=== PATIENT | male | born 1950 | race African-American/Black ===

== ENCOUNTER 2018-01-31 05:45 | Inpatient (IN) | payer MEDICARE ==
[~2018-01-31] VITALS: Ht 175.3 cm; Wt 47.0 kg
--- NOTE | ~2018-01-31 | OP ---
PATIENT NAME: ROGE HDZ MEDICAL RECORD: [id number] :46 LOCATION:D.MS Car[facility]2231 ADMISSION DATE:01/31/18 SURGEON: PRIYANKA BRADSHAW MD DATE OF OPERATION: 02/03/2018 PREOPERATIVE DIAGNOSES: 1. Need for IV access. 2. End-stage renal disease. 3. Mental status changes. 4. Hypertension. 5. Anemia of chronic kidney disease. 6. Pneumonia. POSTOPERATIVE DIAGNOSES: 1. Need for IV access. 2. End-stage renal disease. 3. Mental status changes. 4. Hypertension. 5. Anemia of chronic kidney disease. 6. Pneumonia. PROCEDURE: Right IJ triple-lumen central venous line placement. SURGEON: Priyanka Bradshaw MD REPORT OF PROCEDURE: The patient's right neck was prepped and draped in sterile fashion. Using ultrasound guidance 5 cc of 1% lidocaine was infused into the surrounding tissues and a needle was used to cannulate the right internal jugular vein. A guidewire was advanced with ease. Over this wire, a dilator was placed followed by the triple lumen catheter. The catheter aspirated nonpulsatile dark blood and flushed easily in all 3 ports. This was sutured in place with 3-0 silk ties and dressed appropriately. COMPLICATIONS: None. CONDITION: Stable. ANESTHESIA: Local. BLOOD LOSS: Minimal. Procedure done at the bedside. TRANSINT:[id number] Voice Confirmation ID: [id number] DOCUMENT ID: [id number] PRIYANKA BRADSHAW MD at 0801 CC: [id number] DICTATION DATE: 02/03/181756 MEDICAL RECORD TECHNICIAN: 02/03/18 1846 ADM IN [place] [id number] [place] [address]
--- NOTE | ~2018-01-31 | MORECARE ---
CASE MANAGEMENT DISCHARGE SUMMARY PATIENT: ROGE HDZ UNIT: [id number] ADM DATE: 01/31/18 AGE: 67 : 48 SEX: M ROOM/BED: D.5518 AUTHOR: CASE, LABOR UTILIZATION SUPERINTENDENT PHYSICIAN: REFERRING PHYSICIAN: EMILEE RAMIREZ MD DATE OF SERVICE: 01/31/18 Discharge Plan Patient Name: ROGE HDZ Facility: [facility]:[place] : 1950 Planned Disposition: Shelter Facility Anticipated Discharge Date: Discharge Date: Expected LOS: Initial Reviewer: [email or web address] Initial Review Date: 01/31/2018 Generated: 02/11/18 7:10 pm Comments DCP- Discharge Planning Updated by [email or web address]: Keren Corral on 02/03/18 10:[address] Patient Name: ROGE HDZ Admission Status: ER Accout number: [id number] Admission Date: 01-31-2018 : 1950 Admission Diagnosis: Attending: EMILEE RAMIREZ Current LOS: 3 Anticipated DC Date: Planned Disposition: Shelter Facility Primary Insurance: MEDICARE A & B Discharge Planning Comments: CM attempted to meet with patient to do discharge planning. Patient is unable to answer questions. Sister Valarie at bedside and want to discuss where he go when he is discharged. She stated that the [facility] She would like him to come to [place] to [facility] ([phone]) where her and 3 other siblings live. She stated that their would be more help there and they way he is now he could not live by himself. I asked the patient if he was agreeable to that and he said yes, I am unsure he understands what I asked him. Valarie stated that he does have children, but they have nothing to do with him. CM will continue to follow and assist with DC planning. Valarie (sister) [phone] Power Mule Operator: Keren Corral DCPIA - Discharge Planning Initial Assessment Updated by [email or web address]: Keren Corral on 02/03/18 11:54 am * Is the patient Alert and Oriented? No * PCP UNABLE TO GET INFORMATION Patient Name: ROGE HDZ Page [id number] All edits/amendments must be made on the electronic document DICTATION DATE: 02/11/181808 SHEETMETAL PATTERNMAKER: 02/11/181808 RPT#: [id number] DC DATE: STATUS: ADM IN [facility] [address] [place] [address] END OF REPORT
--- NOTE | ~2018-01-31 | EC ---
PATIENT:ROGE HDZ DATE OF SERVICE: 01/31/18 SEX: M MEDICAL RECORD: [id number] DATE OF : [birth year] LOCATION:D.MS [place] AGE OF PATIENT: 67 ADMISSION DATE: 01/31/18 REFERRING PHYSICIAN: INTERPRETING PHYSICIAN: LUIGI JONES MD ECHOCARDIOGRAM REPORT ECHO CHARGES 4 ECHO COMPLETE Date: 02/01 CLINICAL DIAGNOSIS: SOB ECHOCARDIOGRAPHIC MEASUREMENTS (adult normal given) AC root (d.<3.7cm) 2.2 cm LV Septum d (<1.2 cm> 1.1 cm Valve Excursion 0.9 cm LV Septum (systole) 1.3 cm Left Atria (s.<4.0cm> 2.1 cm LVPW d(<1.2cm) 1.2 cm RV (d.<2.3cm) 3.6 cm LVPW (sytole) 1.9 cm LV diastole(<5.6CM) 4.0 cm MV E-F(>70mm/sec) cm LV systole 3.5 cm LVOT Diameter 2.0 cm MV exc.(>10mm) cm Est.ejection fraction (50-75%) % DOPPLER: LVIT cm/sec A 90 cm/sec E 62 cm/sec LA cm/sec RVSP 59.4 mmHg LVOT 127 cm/sec AOP1/2T m/s Asc. Ao 26 cm/sec RVOT 49 cm/sec RA cm/sec PA 81 cm/sec AV Gradient Peak 1.9 mmHg AV Mean 1.4 mmHg AV Area 2.1 cm MV Gradient Peak 3.5 mmHg MV Mean 1.4 mmHg MV Area cm COMMENTS: Project Management Instructor: Director Of People: 1 Dr. Jones TAPE# PACS Pericardial Effusion N DATE OF SERVICE: 02/01/2018 PROCEDURE: Echocardiogram. FINDINGS: 1. Left ventricular chamber size is within normal limits. Left ventricular systolic function is normal. Overall ejection fraction estimated at 55%. 2. Left atrium, right atrium, and right ventricle chamber sizes are within normal limits. 3. Valvular structures have normal structure and motion. ECHOCARDIOGRAM REPORT [id number] ROGE HDZ 4. Doppler interrogation reveals mild to moderate tricuspid regurgitation, no other valvular insufficiency or stenosis; however, pulmonary systolic pressure is elevated estimated 60 mmHg. 5. No evidence of pericardial effusion or left ventricular thrombus. TRANSINT:[id number] Voice Confirmation ID: [id number] DOCUMENT ID: [id number] LUIGI JONES MD at 1325 CC: [id number] DICTATION DATE: 02/01/18 1228 HAND GLOVE CLEANER: 02/01/18 1239 ADM IN [place] [id number] [place] [id number]
[~2018-01-31 05:45] MED LIST: AFRIN15 ML NASAL; CALAN120 MG PO; CALAN80 MG PO; CATAPRES0.1 MG PO; CHLORASEPTIC177 ML TOPICAL; COLACE100 MG PO; EMLA CREAM 30 G30 G1 TOPICAL; HYDRALAZINE HCL25 MG PO; HYDROCODON-ACE1 EAC7 PO; LEVAQUIN250 MG PO; LOPRESSOR25 MG PO; MIRALAX17 GM PO; NEPHRO-VITE RX1 TAB PO; PRAVACHOL20 MG PO; PRILOSEC20 MG PO; SODIUM BICARBO650 MG PO; TUMS500 MG PO; VENTOLIN HFA18 GM INH; ZOFRAN4 MG PO
[2018-01-31 06:21] LABS: HEMATOCRIT 31.5 % (42.0-54.0); HEMOGLOBIN 11.3 g/dL (13.5-17.5); MCH 32.3 pg (26.0-34.0); MCHC 35.9 g/dL (31.0-37.0); MEAN PLATELET VOLUME 10.8 fL (7.4-10.4); PLATELET COUNT 229 10x3/uL (130-400); RDW 13.6 % (11.5-14.5); WBC 3.9 10x3/uL (4.8-10.8)
[2018-01-31 07:13] LABS: EOSINOPHILS 1 % (0-7); LYMPHOCYTES 48 % (15-50); MONOCYTES 10 % (2-11); NEUTROPHILS 41 % (40-80); PLATELET ESTIMATE NORMAL
[2018-01-31 07:34] LABS: ALBUMIN 3.5 g/dL (3.4-5.0); ALKALINE PHOSPHATASE 85 U/L (46-116); ALT (SGPT) 23 U/L (10-68); BILIRUBIN - TOTAL 0.59 mg/dL (0.2-1.3); CALC OSMOLALITY 270 mosm/kg (275-300); CALCIUM 8.3 mg/dL (8.5-10.1); CARBON DIOXIDE 22.1 mmol/L (21.0-32.0); CHLORIDE - SERUM 89 mmol/L (98-107); GLUCOSE 109 mg/dL (74-106); PROTEIN - SERUM 7.2 g/dL (6.4-8.2); SODIUM 128 mmol/L (136-145); UREA NITROGEN 50 mg/dL (7-18); eGFR NON AFRICAN AMERICAN 5 mL/min (90-120)
[2018-01-31 07:45] LABS: CKMB 0.7 U/L (0.0-3.6); CREATINE KINASE 157 UL (21-232)
[2018-01-31 07:46] LABS: PRO BNP 66090 pg/mL (0-125); TROPONIN-I < 0.017 ng/mL (0.000-0.060)
[2018-01-31 08:00] VITALS: BP 174/92
[2018-01-31 08:00] LABS: POTASSIUM - SERUM 5.6 mmol/L (3.5-5.1)
[2018-01-31 11:19] VITALS: BP 171/58; BMI 18.5
[2018-01-31 16:05] VITALS: BP 200/97
[2018-01-31 22:41] VITALS: BP 214/118
[2018-02-01 00:38] VITALS: BP 165/82
[2018-02-01 03:58] VITALS: BP 204/101
[2018-02-01 08:12] VITALS: BP 190/100
[2018-02-01 09:08] LABS: ALBUMIN 3.5 g/dL (3.4-5.0); BILIRUBIN - TOTAL 0.65 mg/dL (0.2-1.3); CALCIUM 8.5 mg/dL (8.5-10.1); CARBON DIOXIDE 23.4 mmol/L (21.0-32.0); CREATININE - SERUM 9.8 mg/dL (0.6-1.3); MAGNESIUM - SERUM 1.8 mg/dL (1.8-2.4); PHOSPHOROUS 7.8 mg/dL (2.5-4.9); POTASSIUM - SERUM 5.4 mmol/L (3.5-5.1); VANCOMYCIN - RANDOM 9.9 ug/mL (10.0-20.0)
[2018-02-01 09:09] LABS: LYMPHOCYTES 10.2 % (15-50); MCH 32.3 pg (26.0-34.0); MCHC 35.9 g/dL (31.0-37.0); MCV 90.1 fL (80.0-100.0); MEAN PLATELET VOLUME 10.3 fL (7.4-10.4); NEUTROPHILS 80.7 % (40-80); PLATELET COUNT 209 10x3/uL (130-400); RDW 15.8 % (11.5-14.5)
[2018-02-01 09:16] LABS: HEMATOCRIT 39.3 % (42.0-54.0); HEMOGLOBIN 14.1 g/dL (13.5-17.5); RBC 4.36 10x6/uL (4.20-6.10); WBC 7.9 10x3/uL (4.8-10.8)
[2018-02-01 12:43] VITALS: BP 184/87
[2018-02-01 12:46] VITALS: BMI 18.4
[2018-02-01 21:29] VITALS: BP 145/114
[2018-02-01 23:47] VITALS: BP 171/88
[2018-02-02 04:22] VITALS: BP 177/90
[2018-02-02 06:56] LABS: BASOPHILS 0.1 % (0-2); EOSINOPHILS 0 % (0-7); HEMATOCRIT 37.4 % (42.0-54.0); HEMOGLOBIN 13.3 g/dL (13.5-17.5); IMMATURE GRANULOCYTES 0.2 % (0-5); LYMPHOCYTES 7.4 % (15-50); MCH 32.7 pg (26.0-34.0); MCHC 35.6 g/dL (31.0-37.0); MCV 91.9 fL (80.0-100.0); MEAN PLATELET VOLUME 10.5 fL (7.4-10.4); MONOCYTES 8.7 % (2-11); NEUTROPHILS 83.6 % (40-80); RBC 4.07 10x6/uL (4.20-6.10); RDW 14.3 % (11.5-14.5)
[2018-02-02 06:57] LABS: PLATELET COUNT 165 10x3/uL (130-400); WBC 13.6 10x3/uL (4.8-10.8)
[2018-02-02 07:21] LABS: ANION GAP 18.4 mmol/L (8-16); BILIRUBIN - TOTAL 0.72 mg/dL (0.2-1.3); CALCIUM 8.1 mg/dL (8.5-10.1); CARBON DIOXIDE 28.7 mmol/L (21.0-32.0); CREATININE - SERUM 9.4 mg/dL (0.6-1.3); POTASSIUM - SERUM 5.1 mmol/L (3.5-5.1); PROTEIN - SERUM 6.5 g/dL (6.4-8.2)
[2018-02-02 10:08] VITALS: BP 183/97
[2018-02-02 20:13] VITALS: BP 178/96
[2018-02-03 00:30] VITALS: BP 174/94
[2018-02-03 02:46] VITALS: BP 155/98
[2018-02-03 06:47] LABS: BASOPHILS 0.1 % (0-2); EOSINOPHILS 0 % (0-7); HEMATOCRIT 35.8 % (42.0-54.0); HEMOGLOBIN 12.6 g/dL (13.5-17.5); IMMATURE GRANULOCYTES 0.4 % (0-5); LYMPHOCYTES 6.8 % (15-50); MCH 32.7 pg (26.0-34.0); MCHC 35.2 g/dL (31.0-37.0); MEAN PLATELET VOLUME 10.9 fL (7.4-10.4); MONOCYTES 8.3 % (2-11); NEUTROPHILS 84.4 % (40-80); PLATELET COUNT 184 10x3/uL (130-400); RBC 3.85 10x6/uL (4.20-6.10); RDW 14.6 % (11.5-14.5)
[2018-02-03 07:14] LABS: ALBUMIN 3.1 g/dL (3.4-5.0); ANION GAP 17.2 mmol/L (8-16); BILIRUBIN - TOTAL 0.97 mg/dL (0.2-1.3); CARBON DIOXIDE 28.2 mmol/L (21.0-32.0); CREATININE - SERUM 9.7 mg/dL (0.6-1.3); PHOSPHOROUS 6.2 mg/dL (2.5-4.9); POTASSIUM - SERUM 5.4 mmol/L (3.5-5.1); PROTEIN - SERUM 6.7 g/dL (6.4-8.2)
[2018-02-03 08:57] VITALS: BP 179/98
[2018-02-03 13:15] VITALS: BP 163/91
[2018-02-03 15:04] VITALS: Ht 175.3 cm; Wt 47.0 kg
[2018-02-03 16:56] VITALS: BP 156/80
[2018-02-03 20:04] VITALS: BP 165/98
[2018-02-04 01:23] VITALS: BP 186/96
[2018-02-04 04:51] LABS: BASOPHILS 0.1 % (0-2); EOSINOPHILS 0 % (0-7); HEMATOCRIT 32.3 % (42.0-54.0); HEMOGLOBIN 11.3 g/dL (13.5-17.5); IMMATURE GRANULOCYTES 0.3 % (0-5); LYMPHOCYTES 8.9 % (15-50); MCH 32.6 pg (26.0-34.0); MCV 93.1 fL (80.0-100.0); MEAN PLATELET VOLUME 10.5 fL (7.4-10.4); MONOCYTES 6.7 % (2-11); PLATELET COUNT 182 10x3/uL (130-400); RBC 3.47 10x6/uL (4.20-6.10); RDW 14.7 % (11.5-14.5); WBC 10.8 10x3/uL (4.8-10.8)
[2018-02-04 05:13] LABS: ALBUMIN 2.9 g/dL (3.4-5.0); ANION GAP 20.7 mmol/L (8-16); BILIRUBIN - TOTAL 1.24 mg/dL (0.2-1.3); CALCIUM 9.1 mg/dL (8.5-10.1); CARBON DIOXIDE 27.4 mmol/L (21.0-32.0); CREATININE - SERUM 11.6 mg/dL (0.6-1.3); PHOSPHOROUS 7.3 mg/dL (2.5-4.9); POTASSIUM - SERUM 5.1 mmol/L (3.5-5.1); PROTEIN - SERUM 6.3 g/dL (6.4-8.2); VANCOMYCIN - RANDOM 27.2 ug/mL (10.0-20.0)
[2018-02-04 09:31] VITALS: BP 169/97
[2018-02-04 16:44] VITALS: BP 166/94
[2018-02-04 20:24] VITALS: BP 174/57
[2018-02-04 23:41] VITALS: BP 170/95
[2018-02-05] VITALS (11 sets, daily range): BP systolic 142–176; BP diastolic 56–110
[2018-02-05 07:34] LABS: BASOPHILS 0.1 % (0-2); EOSINOPHILS 0.6 % (0-7); HEMATOCRIT 30.6 % (42.0-54.0); HEMOGLOBIN 10.7 g/dL (13.5-17.5); IMMATURE GRANULOCYTES 0.1 % (0-5); LYMPHOCYTES 12.4 % (15-50); MCH 32.3 pg (26.0-34.0); MCV 92.4 fL (80.0-100.0); MEAN PLATELET VOLUME 10.8 fL (7.4-10.4); MONOCYTES 10.7 % (2-11); NEUTROPHILS 76.1 % (40-80); PLATELET COUNT 189 10x3/uL (130-400); RBC 3.31 10x6/uL (4.20-6.10); RDW 14.5 % (11.5-14.5)
[2018-02-05 08:01] LABS: ALBUMIN 2.7 g/dL (3.4-5.0); ANION GAP 19.7 mmol/L (8-16); BILIRUBIN - TOTAL 1.33 mg/dL (0.2-1.3); CARBON DIOXIDE 25.8 mmol/L (21.0-32.0); CREATININE - SERUM 9.7 mg/dL (0.6-1.3); PHOSPHOROUS 5.7 mg/dL (2.5-4.9); POTASSIUM - SERUM 4.5 mmol/L (3.5-5.1); VANCOMYCIN - RANDOM 19.1 ug/mL (10.0-20.0)
[2018-02-06] VITALS (24 sets, daily range): BP systolic 111–149; BP diastolic 60–101
[2018-02-06 05:20] LABS: BASOPHILS 0.1 % (0-2); HEMATOCRIT 29.7 % (42.0-54.0); HEMOGLOBIN 10.4 g/dL (13.5-17.5); IMMATURE GRANULOCYTES 0.2 % (0-5); LYMPHOCYTES 11.6 % (15-50); MCH 32.5 pg (26.0-34.0); MCV 92.8 fL (80.0-100.0); MEAN PLATELET VOLUME 10.2 fL (7.4-10.4); MONOCYTES 14.9 % (2-11); NEUTROPHILS 72.2 % (40-80); PLATELET COUNT 202 10x3/uL (130-400); RDW 14.4 % (11.5-14.5); WBC 8.9 10x3/uL (4.8-10.8)
[2018-02-06 05:44] LABS: ALBUMIN 2.5 g/dL (3.4-5.0); ANION GAP 15.7 mmol/L (8-16); BILIRUBIN - TOTAL 1.55 mg/dL (0.2-1.3); CALCIUM 9.1 mg/dL (8.5-10.1); CARBON DIOXIDE 27.5 mmol/L (21.0-32.0); CREATININE - SERUM 9.2 mg/dL (0.6-1.3); POTASSIUM - SERUM 4.2 mmol/L (3.5-5.1); PROTEIN - SERUM 6.4 g/dL (6.4-8.2); VANCOMYCIN - RANDOM 19.6 ug/mL (10.0-20.0)
[2018-02-07] VITALS (25 sets, daily range): BP systolic 119–158; BP diastolic 59–111
[2018-02-07 04:15] LABS: BASOPHILS 0.1 % (0-2); EOSINOPHILS 2.8 % (0-7); HEMATOCRIT 28.6 % (42.0-54.0); HEMOGLOBIN 9.8 g/dL (13.5-17.5); IMMATURE GRANULOCYTES 0.2 % (0-5); LYMPHOCYTES 14.6 % (15-50); MCH 31.9 pg (26.0-34.0); MCHC 34.3 g/dL (31.0-37.0); MCV 93.2 fL (80.0-100.0); MEAN PLATELET VOLUME 10.3 fL (7.4-10.4); MONOCYTES 12.3 % (2-11); PLATELET COUNT 201 10x3/uL (130-400); RBC 3.07 10x6/uL (4.20-6.10); RDW 14.3 % (11.5-14.5); WBC 9.3 10x3/uL (4.8-10.8)
[2018-02-07 04:34] LABS: ALBUMIN 2.2 g/dL (3.4-5.0); BILIRUBIN - TOTAL 1.13 mg/dL (0.2-1.3); CALCIUM 9.1 mg/dL (8.5-10.1); CARBON DIOXIDE 28.3 mmol/L (21.0-32.0); CREATININE - SERUM 11.1 mg/dL (0.6-1.3); PHOSPHOROUS 4.9 mg/dL (2.5-4.9); POTASSIUM - SERUM 4.1 mmol/L (3.5-5.1); VANCOMYCIN - RANDOM 32.4 ug/mL (10.0-20.0)
[2018-02-07 04:38] LABS: ANION GAP 16.8 mmol/L (8-16)
[2018-02-08] VITALS (26 sets, daily range): BP systolic 132–181; BP diastolic 19–114
[2018-02-08 03:53] LABS: BASOPHILS 0.1 % (0-2); EOSINOPHILS 3.3 % (0-7); HEMATOCRIT 28.3 % (42.0-54.0); HEMOGLOBIN 9.9 g/dL (13.5-17.5); IMMATURE GRANULOCYTES 0.8 % (0-5); LYMPHOCYTES 14.2 % (15-50); MCH 32.6 pg (26.0-34.0); MCV 93.1 fL (80.0-100.0); MEAN PLATELET VOLUME 9.9 fL (7.4-10.4); MONOCYTES 12.6 % (2-11); PLATELET COUNT 209 10x3/uL (130-400); RBC 3.04 10x6/uL (4.20-6.10); RDW 14.4 % (11.5-14.5); WBC 10.3 10x3/uL (4.8-10.8)
[2018-02-08 04:16] LABS: ALBUMIN 2.3 g/dL (3.4-5.0); ANION GAP 19.6 mmol/L (8-16); BILIRUBIN - TOTAL 1.04 mg/dL (0.2-1.3); CALCIUM 9.5 mg/dL (8.5-10.1); CARBON DIOXIDE 26.7 mmol/L (21.0-32.0); CREATININE - SERUM 12.3 mg/dL (0.6-1.3); POTASSIUM - SERUM 4.3 mmol/L (3.5-5.1); PROTEIN - SERUM 6.3 g/dL (6.4-8.2); VANCOMYCIN - RANDOM 31.3 ug/mL (10.0-20.0)
[2018-02-09] VITALS (24 sets, daily range): BP systolic 125–173; BP diastolic 71–99
[2018-02-09 03:57] LABS: BASOPHILS 0.1 % (0-2); EOSINOPHILS 2.8 % (0-7); HEMATOCRIT 29.1 % (42.0-54.0); HEMOGLOBIN 10.1 g/dL (13.5-17.5); IMMATURE GRANULOCYTES 0.8 % (0-5); LYMPHOCYTES 13.6 % (15-50); MCH 32.2 pg (26.0-34.0); MCHC 34.7 g/dL (31.0-37.0); MCV 92.7 fL (80.0-100.0); MONOCYTES 16.6 % (2-11); NEUTROPHILS 66.1 % (40-80); PLATELET COUNT 229 10x3/uL (130-400); RBC 3.14 10x6/uL (4.20-6.10); RDW 14.2 % (11.5-14.5); WBC 9.5 10x3/uL (4.8-10.8)
[2018-02-09 04:12] LABS: ALBUMIN 2.4 g/dL (3.4-5.0); ANION GAP 15.7 mmol/L (8-16); BILIRUBIN - TOTAL 0.88 mg/dL (0.2-1.3); CALCIUM 9.1 mg/dL (8.5-10.1); PHOSPHOROUS 4.7 mg/dL (2.5-4.9); POTASSIUM - SERUM 3.7 mmol/L (3.5-5.1); PROTEIN - SERUM 6.5 g/dL (6.4-8.2); VANCOMYCIN - RANDOM 25.5 ug/mL (10.0-20.0)
[2018-02-09 04:14] LABS: CREATININE - SERUM 8.1 mg/dL (0.6-1.3)
[2018-02-10] VITALS (24 sets, daily range): BP systolic 121–175; BP diastolic 57–119
[2018-02-10 04:49] LABS: HEMATOCRIT 28.3 % (42.0-54.0); HEMOGLOBIN 9.9 g/dL (13.5-17.5); MCH 32.4 pg (26.0-34.0); MCV 92.5 fL (80.0-100.0); MEAN PLATELET VOLUME 10.7 fL (7.4-10.4); PLATELET COUNT 254 10x3/uL (130-400); RBC 3.06 10x6/uL (4.20-6.10); RDW 14.1 % (11.5-14.5); WBC 8.5 10x3/uL (4.8-10.8)
[2018-02-10 04:59] LABS: ALBUMIN 2.2 g/dL (3.4-5.0); ANION GAP 16.8 mmol/L (8-16); BILIRUBIN - TOTAL 0.7 mg/dL (0.2-1.3); CALCIUM 8.9 mg/dL (8.5-10.1); CARBON DIOXIDE 26.9 mmol/L (21.0-32.0); CREATININE - SERUM 9.9 mg/dL (0.6-1.3); PHOSPHOROUS 5.8 mg/dL (2.5-4.9); POTASSIUM - SERUM 3.7 mmol/L (3.5-5.1); PROTEIN - SERUM 6.2 g/dL (6.4-8.2); VANCOMYCIN - RANDOM 23.2 ug/mL (10.0-20.0)
[2018-02-10 07:20] LABS: ACANTHOCYTES OCC; ANISOCYTOSIS OCC; EOSINOPHILS 4 % (0-7); HYPOCHROMASIA OCC; LYMPHOCYTES 20 % (15-50); MONOCYTES 15 % (2-11); NEUTROPHILS 58 % (40-80); PLATELET ESTIMATE NORMAL
[2018-02-11] VITALS (14 sets, daily range): BP systolic 106–157; BP diastolic 63–79
[2018-02-11 04:19] LABS: BASOPHILS 0.2 % (0-2); EOSINOPHILS 1.6 % (0-7); HEMOGLOBIN 11.8 g/dL (13.5-17.5); IMMATURE GRANULOCYTES 0.4 % (0-5); MCH 32.4 pg (26.0-34.0); MCHC 34.4 g/dL (31.0-37.0); MCV 94.2 fL (80.0-100.0); MEAN PLATELET VOLUME 10.2 fL (7.4-10.4); MONOCYTES 20.1 % (2-11); NEUTROPHILS 57.7 % (40-80); PLATELET COUNT 298 10x3/uL (130-400); RBC 3.64 10x6/uL (4.20-6.10); RDW 14.1 % (11.5-14.5); WBC 8.2 10x3/uL (4.8-10.8)
[2018-02-11 04:35] LABS: HEMATOCRIT 34.3 % (42.0-54.0)
[2018-02-11 04:37] LABS: ANION GAP 13.3 mmol/L (8-16); CALCIUM 9.9 mg/dL (8.5-10.1); CARBON DIOXIDE 33.4 mmol/L (21.0-32.0); CREATININE - SERUM 7.6 mg/dL (0.6-1.3); PHOSPHOROUS 5.1 mg/dL (2.5-4.9); POTASSIUM - SERUM 3.7 mmol/L (3.5-5.1)
[2018-02-12] VITALS: BP 117/63
[2018-02-12 05:36] VITALS: BP 137/64
[2018-02-12 06:22] LABS: ANION GAP 20.3 mmol/L (8-16); CALCIUM 9.6 mg/dL (8.5-10.1); CARBON DIOXIDE 27.1 mmol/L (21.0-32.0)
[2018-02-12 06:26] LABS: CREATININE - SERUM 9.7 mg/dL (0.6-1.3)
[2018-02-12 06:27] LABS: POTASSIUM - SERUM 4.4 mmol/L (3.5-5.1)
[2018-02-12 08:19] VITALS: BP 130/66
[2018-02-12 16:16] VITALS: BP 128/78
[2018-02-12 20:02] VITALS: BP 162/76
[2018-02-13 00:24] VITALS: BP 125/64
[2018-02-13 06:13] VITALS: BP 137/68
[2018-02-13 06:26] LABS: BASOPHILS 0.2 % (0-2); EOSINOPHILS 0.3 % (0-7); HEMATOCRIT 36.7 % (42.0-54.0); HEMOGLOBIN 12.5 g/dL (13.5-17.5); IMMATURE GRANULOCYTES 0.2 % (0-5); LYMPHOCYTES 15.3 % (15-50); MCH 32.2 pg (26.0-34.0); MCHC 34.1 g/dL (31.0-37.0); MCV 94.6 fL (80.0-100.0); MEAN PLATELET VOLUME 10.1 fL (7.4-10.4); MONOCYTES 13.1 % (2-11); NEUTROPHILS 70.9 % (40-80); PLATELET COUNT 319 10x3/uL (130-400); RBC 3.88 10x6/uL (4.20-6.10); RDW 14.4 % (11.5-14.5); WBC 13.1 10x3/uL (4.8-10.8)
[2018-02-13 06:39] LABS: ANION GAP 15.2 mmol/L (8-16); CARBON DIOXIDE 31.5 mmol/L (21.0-32.0); CREATININE - SERUM 7.2 mg/dL (0.6-1.3); PHOSPHOROUS 4.5 mg/dL (2.5-4.9); POTASSIUM - SERUM 3.7 mmol/L (3.5-5.1)
[2018-02-13 08:09] VITALS: BP 154/83
[2018-02-13 12:05] VITALS: BP 128/71
[2018-02-13 15:01] VITALS: BP 130/70
[2018-02-13 20:30] VITALS: BP 152/78
[2018-02-14 04:30] VITALS: BP 155/93
[2018-02-14 08:55] VITALS: BP 116/67
[2018-02-14 10:12] LABS: ANION GAP 15.7 mmol/L (8-16); CALCIUM 9.8 mg/dL (8.5-10.1); CARBON DIOXIDE 29.7 mmol/L (21.0-32.0); CREATININE - SERUM 9.8 mg/dL (0.6-1.3); POTASSIUM - SERUM 4.4 mmol/L (3.5-5.1)
[2018-02-14 13:25] VITALS: BP 110/69
[2018-02-14 16:11] VITALS: BP 120/65
[2018-02-14 21:54] VITALS: BP 128/72
[2018-02-15 02:13] VITALS: BP 110/49
[2018-02-15 05:26] VITALS: BP 112/65
[2018-02-15 06:26] LABS: BASOPHILS 0.6 % (0-2); EOSINOPHILS 0.9 % (0-7); HEMATOCRIT 33.5 % (42.0-54.0); HEMOGLOBIN 11.4 g/dL (13.5-17.5); IMMATURE GRANULOCYTES 0.3 % (0-5); LYMPHOCYTES 26.1 % (15-50); MCH 31.8 pg (26.0-34.0); MCV 93.3 fL (80.0-100.0); MEAN PLATELET VOLUME 9.7 fL (7.4-10.4); MONOCYTES 11.4 % (2-11); NEUTROPHILS 60.7 % (40-80); PLATELET COUNT 343 10x3/uL (130-400); RBC 3.59 10x6/uL (4.20-6.10); RDW 14.5 % (11.5-14.5); WBC 10.1 10x3/uL (4.8-10.8)
[2018-02-15 06:40] LABS: ANION GAP 16.7 mmol/L (8-16); CALCIUM 9.7 mg/dL (8.5-10.1); CARBON DIOXIDE 30.7 mmol/L (21.0-32.0); CREATININE - SERUM 11.7 mg/dL (0.6-1.3); POTASSIUM - SERUM 4.4 mmol/L (3.5-5.1)
[2018-02-15 10:10] VITALS: BP 119/71
[2018-02-16 05:17] VITALS: BP 147/75
[2018-02-16 06:02] LABS: BASOPHILS 0.4 % (0-2); EOSINOPHILS 0.7 % (0-7); HEMATOCRIT 35.5 % (42.0-54.0); HEMOGLOBIN 12.3 g/dL (13.5-17.5); IMMATURE GRANULOCYTES 0.1 % (0-5); LYMPHOCYTES 24.4 % (15-50); MCH 32.4 pg (26.0-34.0); MCHC 34.6 g/dL (31.0-37.0); MCV 93.4 fL (80.0-100.0); MEAN PLATELET VOLUME 9.9 fL (7.4-10.4); MONOCYTES 7.7 % (2-11); NEUTROPHILS 66.7 % (40-80); PLATELET COUNT 320 10x3/uL (130-400); RDW 14.5 % (11.5-14.5); WBC 9.2 10x3/uL (4.8-10.8)
[2018-02-16 06:18] LABS: ANION GAP 15.2 mmol/L (8-16); CALCIUM 9.6 mg/dL (8.5-10.1); CARBON DIOXIDE 31.7 mmol/L (21.0-32.0); CREATININE - SERUM 9.1 mg/dL (0.6-1.3); POTASSIUM - SERUM 3.9 mmol/L (3.5-5.1)
[2018-02-16 08:17] VITALS: BP 128/68
[2018-02-16 12:05] VITALS: BP 127/69
[2018-02-16 16:45] VITALS: BP 114/72
[2018-02-16 20:00] VITALS: BP 138/74
[2018-02-17] VITALS: BP 130/70
[2018-02-17 04:00] VITALS: BP 147/84
[2018-02-17 08:47] LABS: BASOPHILS 0.1 % (0-2); HEMATOCRIT 34.4 % (42.0-54.0); HEMOGLOBIN 12.1 g/dL (13.5-17.5); IMMATURE GRANULOCYTES 0.1 % (0-5); LYMPHOCYTES 33.7 % (15-50); MCH 32.4 pg (26.0-34.0); MCHC 35.2 g/dL (31.0-37.0); MEAN PLATELET VOLUME 9.5 fL (7.4-10.4); MONOCYTES 8.5 % (2-11); NEUTROPHILS 56.6 % (40-80); PLATELET COUNT 330 10x3/uL (130-400); RBC 3.74 10x6/uL (4.20-6.10); RDW 14.3 % (11.5-14.5); WBC 7.9 10x3/uL (4.8-10.8)
[2018-02-17 09:09] LABS: ANION GAP 20.3 mmol/L (8-16); CALCIUM 9.7 mg/dL (8.5-10.1); CREATININE - SERUM 11.2 mg/dL (0.6-1.3); POTASSIUM - SERUM 4.3 mmol/L (3.5-5.1)
[2018-02-17 09:16] VITALS: BP 153/80
[2018-02-17] MEDS ORDERED: ACETAMINOPHEN325 MG PO (12:14)
[2018-02-17] MEDS ORDERED: RENVELA0.8 GM PO (12:16)
[2018-02-17] MEDS ORDERED: IPRAT-ALBUT 0.5-3 ML UPD (12:17)
[2018-02-17] MEDS ORDERED: PULMICORT0.5 MG/21 INH (12:17)
[2018-02-17] MEDS ORDERED: VITAMIN B-1100 M1 PO (12:18)
[2018-02-17 16:13] LABS: HEPATITIS C ANTIBODY >11.0 (0.0-0.9)
[2018-02-20 20:07] LABS: AEROBE ID Final report (())
[2018-02-22 14:22] LABS: HEPATITIS BE ANTIBODY Positive (Negative)
== END 2018-02-17 15:43 | DRG 871 ==
LOC: D.ER 05:45 → D.MS 08:30 → D.ICU 08:30 → D.CVICU 08:30 → D.EDHOLD 08:30 → D.M2 08:30 → D.MS 09:10 → D.ICU 02-05 14:32 → D.CVICU 02-11 01:50 → D.M2 02-11 11:10
PROVIDERS: Emergency Medicine; Family Medicine; Internal Medicine; Internal Medicine Nephrology
PROC: 5A1D70Z Performance of Urinary Filtration, Intermittent, Less than 6 Hours Per Day (ICD-10-PCS; principal; 2018-01-31)
PROC: 05HM33Z Insertion of Infusion Device into Right Internal Jugular Vein, Percutaneous Approach (ICD-10-PCS; 2018-02-03)
PROC: 0DH67UZ Insertion of Feeding Device into Stomach, Via Natural or Artificial Opening (ICD-10-PCS; 2018-02-05)
DX: A41.9 Sepsis, unspecified organism (principal); N18.6 End stage renal disease; J18.9 Pneumonia, unspecified organism; G93.41 Metabolic encephalopathy; J96.21 Acute and chronic respiratory failure with hypoxia; J96.22 Acute and chronic respiratory failure with hypercapnia; I50.33 Acute on chronic diastolic (congestive) heart failure; I13.2 Hypertensive heart and chronic kidney disease with heart failure and with stage 5 chronic kidney disease, or end stage renal disease; N17.9 Acute kidney failure, unspecified; J44.0 Chronic obstructive pulmonary disease with (acute) lower respiratory infection; J44.1 Chronic obstructive pulmonary disease with (acute) exacerbation; J98.11 Atelectasis; E87.1 Hypo-osmolality and hyponatremia; E87.2 Acidosis; E87.79 Other fluid overload; F17.210 Nicotine dependence, cigarettes, uncomplicated; Z99.2 Dependence on renal dialysis; Z91.15 Patient's noncompliance with renal dialysis; I07.1 Rheumatic tricuspid insufficiency; E87.5 Hyperkalemia; E78.5 Hyperlipidemia, unspecified; K21.9 Gastro-esophageal reflux disease without esophagitis; R13.10 Dysphagia, unspecified; B19.20 Unspecified viral hepatitis C without hepatic coma; F10.10 Alcohol abuse, uncomplicated; D63.1 Anemia in chronic kidney disease; Z91.19 Patient's noncompliance with other medical treatment and regimen; Z78.1 Physical restraint status

== ENCOUNTER 2018-02-27 09:32 | Inpatient (IN) | payer MEDICARE ==
[~2018-02-27] VITALS: Ht 175.3 cm; Wt 58.1 kg
--- NOTE | ~2018-02-27 | CN ---
PATIENT NAME:ROGE HDZ MEDICAL RECORD: [id number] : 46 LOCATION:SofieICUD.2314 ADMIT DATE: 02/27/18 ACCOUNT: [id number] CONSULTING PHYSICIAN: RC KILGORE MD REFERRING PHYSICIAN: LASHANDA GONZALEZ MD DATE OF CONSULTATION: 03/01/2018 PSYCHIATRIC CONSULTATION IDENTIFYING DATA: The patient is 67 years old and he is admitted to the hospital secondary to acute mental status changes. CHIEF COMPLAINT: None. HISTORY OF PRESENT ILLNESS: The patient was receiving a regularly scheduled dialysis when he became quite confused or lethargic about a half hour before the treatment was finished. He was subsequently referred here and admitted to the hospital. Apparently, he has pneumonia. Obviously, he has end-stage renal disease and has been on dialysis for some time. I am consulted because the patient is wanting to leave the hospital against medical advice. The patient is in his room. He has no lines. He is in his street clothes and has his bag or luggage beside the bed. He is telling me that he wants to leave the hospital and that he does not want to stay even though he understands that doctors have recommended that he stay. He says that he understands he has pneumonia, but he says that he thinks he feels fine. He also says that he feels fine otherwise and says he will continue to do so as long as he gets his dialysis. He denies being suicidal, homicidal, or psychotic. He denies a history of drug or alcohol abuse. He is fully oriented to person, place, time, and situation. He did think that this was 03/03/2018 instead of the 03/01/2018, but that was close enough. He is able to discuss with me the relative risks and benefits of receiving dialysis. He understands what he is doing. He says that he wants to leave the hospital because he has bills to pay. He says that he must get his bills paid and that if he is late with them, he is afraid that he will lose his car or his apartment or be somehow otherwise in trouble. He goes on to tell me and what is probably the most abnormal thing I noticed that he thinks Dr. Gonzalez is looking for an excuse to have him declared incompetent and placed in the snf and that he is not going to be laid on any of his payments to keep this from happening. MENTAL STATUS EXAMINATION: The patient is awake, alert and oriented to person, place, time and situation. His mood is euthymic. His affect appropriate. Thought processes are goal directed. Memory, concentration, and abstraction abilities are mildly impaired and he has no active thoughts of harming himself or others or psychotic symptoms. ASSESSMENT: Adjustment disorder with mixed emotional features. PLAN: The patient is currently displaying no evidence of incompetence. Saying that he is making a bad decision or a poor decision is not the same as saying he is incompetent, they are not the same. He probably is making a bad decision. He has planned things out poorly. He clearly has a long history of not following through with handling things appropriately, but again that is not an incompetence in a way that will require holding him in the hospital against his will. He is able to discuss what is wrong with him, the relative risks and benefits of what he is doing, he is oriented. It is my opinion that he is CONSULT REPORT [id number] ROGE HDZ and if I were his attending, I would allow him to leave against medical advice. TRANSINT:[id number] Voice Confirmation ID: [id number] DOCUMENT ID: [id number] RC KILGORE MD at 1406 CC: [id number] DICTATION DATE: 03/01/181407 SECURITIES TRADER: 03/01/18 1428 DIS IN 03/01/18 [place] [address] [place] [address]
[~2018-02-27 09:32] MED LIST changes: +ACETAMINOPHEN325 MG PO; +IPRAT-ALBUT 0.5-3 ML UPD; +PULMICORT0.5 MG/21 INH; +RENVELA0.8 GM PO; +VITAMIN B-1100 M1 PO
[2018-02-27 10:41] LABS: BASOPHILS 0.2 % (0-2); EOSINOPHILS 1.2 % (0-7); HEMATOCRIT 25.8 % (42.0-54.0); HEMOGLOBIN 8.8 g/dL (13.5-17.5); IMMATURE GRANULOCYTES 0.2 % (0-5); LYMPHOCYTES 28.1 % (15-50); MCH 31.7 pg (26.0-34.0); MCHC 34.1 g/dL (31.0-37.0); MCV 92.8 fL (80.0-100.0); MEAN PLATELET VOLUME 8.2 fL (7.4-10.4); MONOCYTES 8.5 % (2-11); NEUTROPHILS 61.8 % (40-80); PLATELET COUNT 335 10x3/uL (130-400); RBC 2.78 10x6/uL (4.20-6.10); RDW 14.6 % (11.5-14.5)
[2018-02-27 11:04] LABS: ALBUMIN 2.8 g/dL (3.4-5.0); ANION GAP 11.7 mmol/L (8-16); BILIRUBIN - TOTAL 0.71 mg/dL (0.2-1.3); CALCIUM 8.6 mg/dL (8.5-10.1); CARBON DIOXIDE 30.6 mmol/L (21.0-32.0); CREATININE - SERUM 6.3 mg/dL (0.6-1.3); POTASSIUM - SERUM 4.3 mmol/L (3.5-5.1)
[2018-02-27 11:14] LABS: MAGNESIUM - SERUM 1.9 mg/dL (1.8-2.4)
[2018-02-27 11:21] LABS: TROPONIN-I 0.215 ng/mL (0.000-0.060)
[2018-02-27 17:28] VITALS: BP 135/56; BMI 18.9
[2018-02-27 18:12] VITALS: BP 135/56
[2018-02-28] VITALS: BP 165/87
[2018-02-28 04:00] VITALS: BP 183/92
[2018-02-28 05:14] LABS: BASOPHILS 0.4 % (0-2); EOSINOPHILS 1.1 % (0-7); HEMATOCRIT 25.8 % (42.0-54.0); HEMOGLOBIN 9.1 g/dL (13.5-17.5); IMMATURE GRANULOCYTES 0.2 % (0-5); LYMPHOCYTES 27.1 % (15-50); MCH 32.6 pg (26.0-34.0); MCHC 35.3 g/dL (31.0-37.0); MCV 92.5 fL (80.0-100.0); MEAN PLATELET VOLUME 8.5 fL (7.4-10.4); MONOCYTES 18.1 % (2-11); NEUTROPHILS 53.1 % (40-80); PLATELET COUNT 337 10x3/uL (130-400); RBC 2.79 10x6/uL (4.20-6.10); RDW 14.4 % (11.5-14.5); WBC 5.5 10x3/uL (4.8-10.8)
[2018-02-28 05:40] LABS: ANION GAP 12.6 mmol/L (8-16); CALCIUM 8.5 mg/dL (8.5-10.1); CARBON DIOXIDE 31.4 mmol/L (21.0-32.0); CREATININE - SERUM 5.6 mg/dL (0.6-1.3); PHOSPHOROUS 4.1 mg/dL (2.5-4.9)
[2018-02-28 05:41] LABS: TROPONIN-I 0.424 ng/mL (0.000-0.060)
[2018-02-28 08:41] VITALS: BP 172/87
[2018-02-28 11:58] VITALS: BP 173/86
[2018-02-28 14:57] VITALS: BP 133/62
[2018-02-28 20:32] VITALS: BP 151/76
[2018-03-01 00:44] VITALS: BP 167/81
[2018-03-01] MEDS ORDERED: HYDROCODON-ACE1 EAC7 PO (03:20)
[2018-03-01 03:46] LABS: APPEARANCE CLEAR (CLEAR); BILIRUBIN NEGATIVE (NEGATIVE); COLOR YELLOW (YELLOW); GLUCOSE 250 mg/dL (NEGATIVE); KETONE NEGATIVE (NEGATIVE); NITRITE NEGATIVE (NEGATIVE); PROTEIN NEGATIVE (NEGATIVE); SPECIFIC GRAVITY 1.005 (1.005-1.020); UROBILINOGEN NORMAL (NORMAL)
[2018-03-01 03:53] LABS: UDS - AMPHET NEGATIVE QUAL (NEGATIVE); UDS - BARB NEGATIVE QUAL (NEGATIVE); UDS - BENZO NEGATIVE QUAL (NEGATIVE); UDS - COCAINE NEGATIVE QUAL (NEGATIVE); UDS - OPIATE NEGATIVE QUAL (NEGATIVE); UDS - PCP NEGATIVE QUAL (NEGATIVE); UDS - THC NEGATIVE QUAL (NEGATIVE)
[2018-03-01 04:26] VITALS: BP 156/92
[2018-03-01 06:19] LABS: BASOPHILS 0.5 % (0-2); EOSINOPHILS 2.5 % (0-7); HEMATOCRIT 22.9 % (42.0-54.0); HEMOGLOBIN 7.9 g/dL (13.5-17.5); LYMPHOCYTES 36.3 % (15-50); MCH 32.4 pg (26.0-34.0); MCHC 34.5 g/dL (31.0-37.0); MCV 93.9 fL (80.0-100.0); MEAN PLATELET VOLUME 8.8 fL (7.4-10.4); NEUTROPHILS 49.7 % (40-80); PLATELET COUNT 334 10x3/uL (130-400); RBC 2.44 10x6/uL (4.20-6.10); RDW 14.8 % (11.5-14.5); WBC 4.4 10x3/uL (4.8-10.8)
[2018-03-01 06:47] LABS: ANION GAP 16.5 mmol/L (8-16); CALCIUM 8.3 mg/dL (8.5-10.1); CARBON DIOXIDE 27.4 mmol/L (21.0-32.0); POTASSIUM - SERUM 3.9 mmol/L (3.5-5.1)
[2018-03-01 06:48] LABS: CREATININE - SERUM 7.6 mg/dL (0.6-1.3); PHOSPHOROUS 5.3 mg/dL (2.5-4.9)
[2018-03-01 07:00] VITALS: BP 161/87
[2018-03-01 10:51] VITALS: Ht 175.3 cm; Wt 58.1 kg
[2018-03-01 11:00] VITALS: BP 137/75
== END 2018-03-01 14:15 | disposition left against medical advice (07) | DRG 193 ==
LOC: D.ER 09:32 → D.EDHOLD 11:24 → D.MS 11:24 → D.ICU 03-01 07:28
PROVIDERS: Family Medicine; Internal Medicine Nephrology
DX: J18.9 Pneumonia, unspecified organism (principal); N18.6 End stage renal disease; I12.0 Hypertensive chronic kidney disease with stage 5 chronic kidney disease or end stage renal disease; J44.9 Chronic obstructive pulmonary disease, unspecified; Z99.2 Dependence on renal dialysis; D63.1 Anemia in chronic kidney disease; F43.29 Adjustment disorder with other symptoms; E83.39 Other disorders of phosphorus metabolism

== ENCOUNTER 2019-02-21 06:08 | Inpatient (IN) | payer MEDICARE ==
[2019-02-21] VITALS (16 sets, daily range): BP systolic 116–150; BP diastolic 68–99; BMI 14.0
[~2019-02-21] VITALS: Ht 175.3 cm; Wt 45.5 kg
[2019-02-21 06:49] LABS: BASOPHILS 0.2 % (0-2); EOSINOPHILS 0.3 % (0-7); HEMATOCRIT 34.9 % (42.0-54.0); HEMOGLOBIN 11.5 g/dL (13.5-17.5); IMMATURE GRANULOCYTES 0.3 % (0-5); LYMPHOCYTES 28.8 % (15-50); MCH 31.6 pg (26.0-34.0); MCV 95.9 fL (80.0-100.0); MEAN PLATELET VOLUME 9.5 fL (7.4-10.4); MONOCYTES 9.6 % (2-11); NEUTROPHILS 60.8 % (40-80); RBC 3.64 10x6/uL (4.20-6.10); RDW 21.4 % (11.5-14.5); WBC 6.6 10x3/uL (4.8-10.8)
[2019-02-21 06:50] LABS: PLATELET COUNT 183 10x3/uL (130-400)
[2019-02-21 07:01] LABS: APTT 34.4 SECONDS (22.8-39.4); INR 1.13 (0.85-1.17)
[2019-02-21 07:09] LABS: ALBUMIN 3.4 g/dL (3.4-5.0); ALKALINE PHOSPHATASE 83 U/L (46-116); ALT (SGPT) 20 U/L (10-68); BILIRUBIN - TOTAL 0.97 mg/dL (0.2-1.3); CALC OSMOLALITY 278 mosm/kg (275-300); CALCIUM 8.9 mg/dL (8.5-10.1); CHLORIDE - SERUM 98 mmol/L (98-107); GLUCOSE 93 mg/dL (74-106); POTASSIUM - SERUM 5.2 mmol/L (3.5-5.1); PROTEIN - SERUM 7.2 g/dL (6.4-8.2); SODIUM 136 mmol/L (136-145); UREA NITROGEN 31 mg/dL (7-18); eGFR NON AFRICAN AMERICAN 8 mL/min (90-120)
[2019-02-21 07:25] LABS: CREATINE KINASE 127 UL (21-232)
[2019-02-21 07:28] LABS: TROPONIN-I 0.094 ng/mL (0.000-0.060)
[2019-02-21 08:42] LABS: PRO BNP 331193 pg/mL (0-125)
--- NOTE | 2019-02-21 08:54 | NUR ---
REPORT RECEVIED FROM MAURA FROM THE ER. PT HOOKED TO ICU MONITOS. PT DROWSEY AND ALERT TO PERSON AND SITUATION. HE STATED HIS NAME, STATED HE WAS AT [facility] BECAUSE HE HAD TO MUCH FLUID ON HIS KIDNEYS BUT HE COULDNT BREATH. REDIRECTED THE PT. PT SPEACH IS SLURRED AND GARBLED. SINUS TACHYCARIDA 105-115. PT ON 2L VIA NC. BREATHING 27/MIN. 100% SPO2. BP 148.93. PT HAS OLD CABG SCARS TO MIDSTERNAL AND LLE. PT STATED HE HAD A X3 BYPASS SURGERY. OCCASIONA. DRY COUGH NOTED. RIGHT FA IV SL. LEFT ARM RESERVE. LEFT ARM FISTULLA NOTED. THRILL PALPABLE AND BRUIT ASCULTATED. BLE ANKLE +3 EDEMA NOTED. PT NOTED TO HAVE PERSONAL BELONGINGS. SEE ASSESSMENT.
--- NOTE | 2019-02-21 10:09 | NUR ---
PT ATTEMPTING TO CLIMB OOB. ALARMS SOUNDED. PT STATES "I JUST NEED TO WALK AROUND." EXPLAINED THAT IS NOT A GOOD IDEA AND ASSISTED THE PT BACK INTO BED. HOB ELEVATED TO 90 DEGREES. PT SOB AND IN THE TRIPOD POSITION. O2 PLACED ON THE PT AT 2L. 100% SPO2. DR HUGHES PAGED.
--- NOTE | 2019-02-21 10:30 | NUR ---
DR HUGHES PAGED BACK. UPDATED ON THE PTS CONDITION. HE WILL NOTIFY DIALYSIS NURSE.
--- NOTE | 2019-02-21 10:44 | NUR ---
DIALYSIS NURSE AT THE PTS BEDSIDE.
--- NOTE | 2019-02-21 12:25 | NUR ---
DR HUGHES AT THE PTS BEDSIDE.
--- NOTE | 2019-02-21 12:27 | NUR ---
DR CARLEY PATEL FOR CONSULT.
--- NOTE | 2019-02-21 12:30 | NUR ---
DR HOWE PAGED BACK AND AWARE OF CONSULT.
--- NOTE | 2019-02-21 13:09 | NUR ---
VSS AT THIS TIME. TOLERATING DIALYSIS SO FAR.
--- NOTE | 2019-02-21 14:50 | NUR ---
DIALYSIS COMPLETED. 3500 REMOVED PER NURSE.
--- NOTE | 2019-02-21 15:03 | NUR ---
DR HOWE AT THE PTS BEDSIDE.
--- NOTE | 2019-02-21 16:19 | NUR ---
PT MUCH MORE ALERT AND AWAKE. SPEECH MORE CLEAR. WILL CONT POC.
--- NOTE | 2019-02-21 17:18 | NUR ---
PT RESTING WITH HIS EYES CLOSED. EVEN AND UNLABORED RESPIRATION. MEAL TRAY PROVIDED FOR THE PT BUT PT SLEEPING.
--- NOTE | 2019-02-21 17:31 | NUR ---
PT SITTING UP AT THE SIDE OF THE BED EATING HIS DINNER. PT MUCH MORE ALERT WITH CLEAR SPEECH. NO DYSPAGIA NOTED. WILL CONT POC.
--- NOTE | 2019-02-21 19:00 | NUR ---
REPORT RECEIVED, SHIFT ASSESSMENT COMPLETE SEE FLOW SHEET, PT AAOX4, RT FA 22g PIV SL, NSR ON CM, VSS, PT DENIES NEEDS AT THIS TIME, WILL CONTINUE TO MONITOR
--- NOTE | 2019-02-21 22:45 | NUR ---
PT OOB TO BATHROOM WITH MINIMAL ASSIST, PT TOLLERATED WELL WITH MINIMAL SOB WITH EXERTION WHEN AMBULATED BACK TO BED, VSS ON CM, PT STATED BREATHING GOT EASIER WHEN RELAXED IN BED, SCD AND GERRI FLETCHER REPLACED BLE, HOB ELEVATED, WILL CONTINUE TO MONITOR
[2019-02-22] VITALS (16 sets, daily range): BP systolic 120–145; BP diastolic 73–97; Ht 175.3 cm; Wt 45.5 kg
--- NOTE | 2019-02-22 00:30 | NUR ---
PT C/O GENERALIZED PAIN/DISCOMFORT, STATED HE WOULDF FEEL BETTER IF SITTING UP IN RECLINER, PT AMBULATED TO RECLINER WITH RN AT SIDE, ELEVATED LEGS AND REPOSITIONED PT FOR COMFORT, PT STATED PAIN/DISCOMFORT RELEIVED WITH SITTTING IN BEDSIDE CHAIR, VSS, WILL CONTINUE TO MONITOR, CALL LIGHT IN REACH, REVIEWED WITH PT TO CALL NURSE FOR ASSISTANCE AND FALL PRECAUTIONS
[2019-02-22 04:37] LABS: ANION GAP 12.4 mmol/L (8-16); CALCIUM 9.1 mg/dL (8.5-10.1); CARBON DIOXIDE 31.8 mmol/L (21.0-32.0); MAGNESIUM - SERUM 1.6 mg/dL (1.8-2.4); PHOSPHOROUS 4.9 mg/dL (2.5-4.9); POTASSIUM - SERUM 5.2 mmol/L (3.5-5.1)
[2019-02-22 05:06] LABS: BASOPHILS 0.3 % (0-2); EOSINOPHILS 0.8 % (0-7); HEMATOCRIT 34.3 % (42.0-54.0); HEMOGLOBIN 11.4 g/dL (13.5-17.5); IMMATURE GRANULOCYTES 0.2 % (0-5); LYMPHOCYTES 22.8 % (15-50); MCH 31.3 pg (26.0-34.0); MCHC 33.2 g/dL (31.0-37.0); MCV 94.2 fL (80.0-100.0); MEAN PLATELET VOLUME 9.6 fL (7.4-10.4); MONOCYTES 14.6 % (2-11); NEUTROPHILS 61.3 % (40-80); PLATELET COUNT 159 10x3/uL (130-400); RBC 3.64 10x6/uL (4.20-6.10); RDW 20.8 % (11.5-14.5)
--- NOTE | 2019-02-22 05:30 | NUR ---
PT REFUSED CHG BATH, PT STATED "I WOULD LIKE TO WAIT UNTIL 11 OR 12 DURING THE DAY SO I CAN GET SOME SLEEP", WILL NOTIFY DAY SHIFT RN
--- NOTE | 2019-02-22 07:00 | NUR ---
REPORT RECEVIED FROM THE OFF GOING RN. SEE ASSESSMENT IN THE PTS FLOW SHEET. PT A&O X4. VSS AT THIS TIME. BREATHING UNLABORED. VSS. FISTULLA NOTED TO LEFT ARM. BRUIT ASCULTATED AND THRILL PALPABLE. CALL LIGHT IN REACH. WILL CONT POC.
--- NOTE | 2019-02-22 07:53 | NUR ---
DR HOWE CALLED AND STATED TO KEEP THE PT NPO AND TO HOLD LOVENOX. PLAN FOR THORCENTESIS TODAY. PT DID TAKE 2 BIT OF EGGS AND HIS BREAKFAST WAS REMOVED. DR HOWE NOTIFIED ABOUT PT TAKING A COUPLE OF BITES.
--- NOTE | 2019-02-22 07:53 | NUR ---
DR HOWE CALLED AND STATED TO KEEP THE PT NPO AND HOLD LOVENOX. PLAN FOR THORCENTESIS TODAY. PT DID TAKE 2 BITS OF AND HIS BREAKFAST WAS REMOVED. DR HOWE NOTIFIED ABOUT PT TAKING A COUPLE BITS. WILL CONT TO PLAN FOR THOROCENTESIS LATER TODAY.
[2019-02-22 08:48] LABS: APTT 38.7 SECONDS (22.8-39.4); INR 1.23 (0.85-1.17); PROTIME 14.9 SECONDS (11.6-15.0)
--- NOTE | 2019-02-22 08:53 | NUR ---
RENAL CUSTOM SEAMSTRESS AT THE PTS BEDSIDE. OK TO TRANSFER TO THE FLOW IF OK WITH DR HOWE.
--- NOTE | 2019-02-22 09:03 | NUR ---
CONSENT FOR CT GUIDED THORECENTESIS SIGNED BY THE PT AND PALCED IN THE CHART. PT HAS NO QUESTIONS. "IM JUST READY TO GET THIS OVER WITH".
--- NOTE | 2019-02-22 09:33 | NUR ---
PT LEFT WITH IR FOR A THOROCENTESIS.
--- NOTE | 2019-02-22 10:18 | NUR ---
PT BACK FROM IR. [facility]. PT A&O X4. SMALL DRESSING NOTED TO LEFT BACK. 1450ML OF FLUID REMOVED PER NADEEM LICONA RN.
--- NOTE | 2019-02-22 10:31 | NUR ---
DIALYSIS NURSE AT THE PTS BEDSIDE.
[2019-02-22 12:23] LABS: PROTEIN - BODY FLUID 3.4 G/DL
--- NOTE | 2019-02-22 12:50 | NUR ---
SPOKE WITH DR HOWE. OK FOR PT TO TRANSFER TO THE FLOOR. PT CURRENTLY GETTING DIALYSIS. RENAL LEAD IOS DEVELOPER ALREADY OK'D FOR PT TO TRANSFER.
--- NOTE | 2019-02-22 13:51 | NUR ---
HODAN NURSE COMPLETED. 2L REMOVED.
[2019-02-22 14:58] LABS: EOS BF 2 %; MACROPHAGES BF 7 %; MESOTHELIALS BF 1 %; NEUT - BF 7 %
--- NOTE | 2019-02-22 19:30 | NUR ---
REPORT GIVEN TO DAMI OLMEDO. PT TRANSFERED TO ROOM 230
[2019-02-23] VITALS: BP 89/55
[2019-02-23 04:00] VITALS: BP 124/80
[2019-02-23 04:46] LABS: BASOPHILS 0.2 % (0-2); EOSINOPHILS 1.6 % (0-7); HEMATOCRIT 33.3 % (42.0-54.0); HEMOGLOBIN 11.2 g/dL (13.5-17.5); IMMATURE GRANULOCYTES 0.2 % (0-5); LYMPHOCYTES 23.7 % (15-50); MCH 31.7 pg (26.0-34.0); MCHC 33.6 g/dL (31.0-37.0); MCV 94.3 fL (80.0-100.0); MEAN PLATELET VOLUME 9.4 fL (7.4-10.4); MONOCYTES 12.2 % (2-11); NEUTROPHILS 62.1 % (40-80); PLATELET COUNT 146 10x3/uL (130-400); RBC 3.53 10x6/uL (4.20-6.10); RDW 20.4 % (11.5-14.5); WBC 6.3 10x3/uL (4.8-10.8)
[2019-02-23 05:18] LABS: ANION GAP 15.7 mmol/L (8-16); CALCIUM 8.5 mg/dL (8.5-10.1); CARBON DIOXIDE 28.4 mmol/L (21.0-32.0); CREATININE - SERUM 5.5 mg/dL (0.6-1.3)
[2019-02-23 05:28] LABS: POTASSIUM - SERUM 4.1 mmol/L (3.5-5.1)
--- NOTE | 2019-02-23 07:15 | NUR ---
REPORT RECEIVED. ASSESSMENT COMPLETE PER FLOW SHEET. VSS WILL CONTINUE TO MONITOR
[2019-02-23] MEDS ORDERED: DONEPEZIL HCL5 MG PO (08:24)
--- NOTE | 2019-02-23 08:50 | NUR ---
NATALIIA AT BEDSIDE GIVEN UPDATE. PT TO DISCHARGE AT THIS TIME.
--- NOTE | 2019-02-23 09:40 | NUR ---
PT LEFT VIA CAB AT THIS TIME. NEEDS MET
[2019-02-23] MEDS ORDERED: OMNICEF300 MG PO (10:44)
[2019-02-23 19:08] LABS: AFB SPECIMEN PROCESSING Not Indicated (())
--- NOTE | 2019-02-23 20:20 | MORECARE ---
CASE MANAGEMENT DISCHARGE SUMMARY PATIENT: ROGE HDZ UNIT: [id number] ADM DATE: 02/21/19 AGE: 68 : [birth year] SEX: M ROOM/BED: D.2302 AUTHOR: ZEKE GRECO PHYSICIAN: REFERRING PHYSICIAN: SARA HUGHES MD DATE OF SERVICE: 02/23/19 Discharge Plan Patient Name: ROGE HDZ [facility] [facility] 1950 Planned Disposition: Home Anticipated Discharge Date: Discharge Date: 02/23/2019 Expected LOS: Initial Reviewer: [email or web address] Initial Review Date: 02/23/2019 Generated: 02/23/19 9:20 pm Patient Name: ROGE HDZ Page 84159 at 2020 All edits/amendments must be made on the electronic document DICTATION DATE: 02/23/192018 CHOIR TEACHER: HENRY 02/23/192018 RPT#: [id number] DC DATE:02/23/19 STATUS: DIS IN [facility] [address] [place] [address] END OF REPORT
--- NOTE | 2019-02-23 20:26 | MORECARE ---
CASE MANAGEMENT DISCHARGE SUMMARY PATIENT: ROGE HDZ UNIT: [id number] ADM DATE: 02/21/19 AGE: 68 : [birth year] SEX: M ROOM/BED: D.2302 AUTHOR: ZEKE GRECO PHYSICIAN: REFERRING PHYSICIAN: SARA HUGHES MD DATE OF SERVICE: 02/23/19 Discharge Plan Patient Name: ROGE HDZ [facility] [facility] 1950 Planned Disposition: Home Anticipated Discharge Date: Discharge Date: 02/23/2019 Expected LOS: Initial Reviewer: [email or web address] Initial Review Date: 02/23/2019 Generated: 02/23/19 9:26 pm DCPIA - Discharge Planning Initial Assessment Updated by [email or web address]: Claribel Hull on 02/23/19 8:23 pm * Is the patient Alert and Oriented? Yes * How many steps to enter\exit or inside your home? * PCP Ronald * Pharmacy [facility] * Preadmission Environment Home Alone * ADLs Independent * Equipment None * List name and contact numbers for known caregivers / representatives who currently or will assist patient after discharge: Elena Paul - girlfriend [phone] * Verbal permission to speak to the caregivers and representatives has been obtained from the patient. Yes * Community resources currently utilized None * Please name any agencies selected above. HEMODIALYSIS -[facility] @ 0600 * Additional services required to return to the preadmission environment? No * Can the patient safely return to the preadmission environment? Yes * Has this patient been hospitalized within the prior 30 days at any hospital? No Last DP export: 02/23/19 7:20 p Patient Name: ROGE HDZ Page 08252 at 202 All edits/amendments must be made on the electronic document DICTATION DATE: 02/23/192025 LOCAL SALES ASSOCIATE: HENRY 02/23/192025 RPT#: [id number] DC DATE:02/23/19 STATUS: DIS IN [facility] [address] [place] [address] END OF REPORT
--- NOTE | 2019-02-23 20:33 | MORECARE ---
CASE MANAGEMENT DISCHARGE SUMMARY PATIENT: ROGE HDZ UNIT: [id number] ADM DATE: 02/21/19 AGE: 68 : [birth year] SEX: M ROOM/BED: D.2302 AUTHOR: ANGUS,DOC PHYSICIAN: REFERRING PHYSICIAN: SARA HUGHES MD DATE OF SERVICE: 02/23/19 Discharge Plan Patient Name: ROGE HDZ Facility: [facility]:[place] : 1950 Planned Disposition: Home Anticipated Discharge Date: Discharge Date: 02/23/2019 Expected LOS: Initial Reviewer: [email or web address] Initial Review Date: 02/23/2019 Generated: 02/23/19 9:33 pm Comments DCP- Discharge Planning Updated by [email or web address]: Claribel Hull on 02/23/19 7:[address] LATE ENTRY 02/23/19 @ 0900 Patient Name: ROGE HDZ Admission Status: ER Accout number: [id number] Admission Date: 02-21-2019 : 1950 Admission Diagnosis: Attending: SARA HUGHES Current LOS: 2 Anticipated DC Date: Planned Disposition: Home Primary Insurance: MEDICARE A & B Discharge Planning Comments: CM met with patient at bedside after explaining CM role and obtaining verbal consent. Patient lives alone and plans to return there upon discharge. Patient feels this would be a safe discharge. CM discussed availability / needs of home health and medical equipment. Patient denies any discharge needs at this time. Patient has hemodialysis [facility] @ 0600. CM will continue to follow and assist as needed with discharge planning / needs. Program Director Substance Abuse: Claribel Hull DCPIA - Discharge Planning Initial Assessment Updated by [email or web address]: Claribel Hull on 02/23/19 8:23 pm * Is the patient Alert and Oriented? Yes * How many steps to enter\exit or inside your home? * PCP Ronald * Pharmacy [facility] * Preadmission Environment Home Alone * ADLs Independent * Equipment None * List name and contact numbers for known caregivers / representatives who currently or will assist patient after discharge: Elena Paul - girlfriend -[phone] * Verbal permission to speak to the caregivers and representatives has been obtained from the patient. Yes * Community resources currently utilized None * Please name any agencies selected above. [facility]IS [facility] @ 0600 * Additional services required to return to the preadmission environment? No * Can the patient safely return to the preadmission environment? Yes * Has this patient been hospitalized within the prior 30 days at any hospital? No Last DP export: 02/23/19 7:26 p Patient Name: ROGE HDZ Page 61273 at 2033 All edits/amendments must be made on the electronic document DICTATION DATE: 02/23/192031 COURTESY CAR DRIVER: HENRY 02/23/192031 RPT#: [id number] DC DATE:02/23/19 STATUS: DIS IN [facility] [address] [place] [address] END OF REPORT
[2019-02-25 11:10] LABS: FUNGUS STAIN Final report (())
[2019-03-22 07:14] LABS: FUNGUS MYCOLOGY CULTURE Final report (())
[2019-04-15 13:10] LABS: ACID FAST CULTURE Negative (()); ACID FAST SMEAR Negative (())
== END 2019-02-23 09:40 | disposition home health service (06) | DRG 186 ==
LOC: D.ER 06:08 → D.CVICU 08:06 → D.ICU 02-22 19:20
PROVIDERS: Emergency Medicine; Family Medicine; General Practice; Internal Medicine Pulmonary Disease; ADMIT Internal Medicine Nephrology; ATTEND Internal Medicine Nephrology
PROC: 0W9B3ZZ Drainage of Left Pleural Cavity, Percutaneous Approach (ICD-10-PCS; principal; 2019-02-22 09:30)
DX: J90 Pleural effusion, not elsewhere classified (principal); N18.6 End stage renal disease; J96.22 Acute and chronic respiratory failure with hypercapnia; J96.21 Acute and chronic respiratory failure with hypoxia; J18.9 Pneumonia, unspecified organism; I12.0 Hypertensive chronic kidney disease with stage 5 chronic kidney disease or end stage renal disease; J44.1 Chronic obstructive pulmonary disease with (acute) exacerbation; J44.0 Chronic obstructive pulmonary disease with (acute) lower respiratory infection; Z99.2 Dependence on renal dialysis; Z91.15 Patient's noncompliance with renal dialysis; K21.9 Gastro-esophageal reflux disease without esophagitis; F10.10 Alcohol abuse, uncomplicated; E78.5 Hyperlipidemia, unspecified; D63.1 Anemia in chronic kidney disease

== ENCOUNTER 2019-03-04 02:22 | Emergency (ER) | payer MEDICARE ==
[~2019-03-04] VITALS: Ht 175.3 cm; Wt 86.2 kg
[~2019-03-04 02:22] MED LIST changes: +DONEPEZIL HCL5 MG PO; +OMNICEF300 MG PO
[2019-03-04 02:24] VITALS: Ht 175.3 cm; Wt 86.2 kg
[2019-03-04 03:20] LABS: BASOPHILS 0.3 % (0-2); EOSINOPHILS 1.3 % (0-7); HEMATOCRIT 33.1 % (42.0-54.0); HEMOGLOBIN 10.9 g/dL (13.5-17.5); IMMATURE GRANULOCYTES 0.2 % (0-5); LYMPHOCYTES 47.2 % (15-50); MCH 31.6 pg (26.0-34.0); MCHC 32.9 g/dL (31.0-37.0); MCV 95.9 fL (80.0-100.0); MEAN PLATELET VOLUME 9.3 fL (7.4-10.4); MONOCYTES 13.4 % (2-11); NEUTROPHILS 37.6 % (40-80); RBC 3.45 10x6/uL (4.20-6.10); RDW 19.2 % (11.5-14.5); WBC 6.1 10x3/uL (4.8-10.8)
[2019-03-04 03:21] LABS: PLATELET COUNT 181 10x3/uL (130-400)
[2019-03-04 03:34] LABS: ALBUMIN 2.5 g/dL (3.4-5.0); ANION GAP 10.9 mmol/L (8-16); BILIRUBIN - TOTAL 0.43 mg/dL (0.2-1.3); CALCIUM 8.2 mg/dL (8.5-10.1); CARBON DIOXIDE 33.1 mmol/L (21.0-32.0); PROTEIN - SERUM 6.5 g/dL (6.4-8.2)
[2019-03-04 03:51] LABS: TROPONIN-I 0.064 ng/mL (0.000-0.060)
[2019-03-04 06:58] VITALS: BP 129/95
== END 2019-03-04 07:00 | disposition home or self-care (01) ==
LOC: D.ER 02:22
PROVIDERS: Family Medicine
DX: R10.9 Unspecified abdominal pain (principal)